=== PATIENT | female | born 1995 ===

== ENCOUNTER 2022-10-05 15:10 | Emergency (ER) | payer MEDICAID ==
[~2022-10-05] VITALS: Ht 157.5 cm; Wt 92.1 kg
[2022-10-05 15:16] VITALS: BP 133/89
== END 2022-10-05 16:51 | disposition home or self-care (01) ==
LOC: ER 15:10
DX: M79.671 Pain in right foot (principal); F17.210 Nicotine dependence, cigarettes, uncomplicated; F17.290 Nicotine dependence, other tobacco product, uncomplicated
CPT/HCPCS: 73630; 99283-25

== ENCOUNTER 2023-03-07 17:05 | Emergency (ER) | payer OTHER ==
[~2023-03-07] VITALS: Ht 160 cm; Wt 99.8 kg
[2023-03-07 17:34] VITALS: BP 133/84
[2023-03-07 18:46] LABS: SARS-Cov-2 (COVID-19) PCR, MMC NEGATIVE (NEGATIVE)
[2023-03-07 18:47] LABS: Influenza A Negative (NEGATIVE); Influenza B Negative (NEGATIVE)
== END 2023-03-07 19:21 | disposition home or self-care (01) ==
LOC: ER 17:05
PROVIDERS: Student in an Organized Health Care Education/Training Program
DX: B34.9 Viral infection, unspecified (principal); F17.210 Nicotine dependence, cigarettes, uncomplicated; F17.290 Nicotine dependence, other tobacco product, uncomplicated; Z20.822 Contact with and (suspected) exposure to COVID-19
CPT/HCPCS: 87804; 87807; 99283; U0002

== ENCOUNTER 2023-03-24 08:24 | Emergency (ER) | payer OTHER ==
[~2023-03-24] VITALS: Ht 160 cm; Wt 90.7 kg
[2023-03-24 09:32] VITALS: BP 138/93
[2023-03-24] MEDS ORDERED: Percocet 5-3251 EACH PO (11:19)
[2023-03-24] MEDS ORDERED: AMOCLA875 PO (11:19)
[2023-03-24] MEDS ORDERED: IBUP800 PO (11:19)
== END 2023-03-24 11:30 | disposition home or self-care (01) ==
LOC: ER 08:24
DX: K02.9 Dental caries, unspecified (principal); F17.210 Nicotine dependence, cigarettes, uncomplicated; F17.290 Nicotine dependence, other tobacco product, uncomplicated
CPT/HCPCS: 64400; 99282-25